=== PATIENT | female | born 1990 | race Caucasian/White ===

== ENCOUNTER → 2021-03-22 12:29 | Outpatient (CLI) | payer OTHER, SELFPAY ==
--- NOTE | 2021-03-22 12:30 | DI.RAD.S_ITS ---
PROCEDURE: HL HYSTEROSAPINGOGRAPHY INDICATIONS: primary infertility COMPARISON: None. FINDINGS: Patient had a documented negative test prior to the study. Following speculum insertion, a balloon-tip catheter was inserted into the cervical canal, and secured by inflating the balloon. Contrast was then injected into the endometrial canal. Uterus: The uterine cavity appears normal in size and morphology, without synechiae or masses. Fallopian tubes: Both fallopian tubes fill with contrast, and appear normal in caliber and morphology. There is ready dispersion of contrast into the peritoneal cavity. IMPRESSION: Normal hysterosalpingogram. Dictated by: Nya Garcia MD, PhD on 03/22/2021 at 16:25 Approved by: Nya Garcia MD, PhD on 03/22/2021 at 16:26
--- NOTE | 2021-03-22 17:52 | PM.PROC.1 ---
Procedures Date/Time Date of procedure: 03/22/21 Time of procedure: 13:00 General Procedure description: Hysterosalpingogram note: After obtaining informed consent, the placement was placed in the supine position on the x-ray table. A sterile bivalve speculum was then placed inside the vagina and the cervix visualized. The cervix was then painted with Betadine and a hysterosalpingogram cannula was then introduced through the endocervical canal into the lower uterine segment. 1 cc of air was placed in the balloon so as to hold it in place and with the radiologist in attendance contrast material was slowly injected into the uterine cavity. Prompt fill of the cavity as well as both tubes was noted and spill into the abdominal cavity followed shortly thereafter. Impression: Normal hysterosalpingogram. Complications experience none. Following completion the procedure the patient was counseled regarding precautionary symptoms, limitations of activity, and she will be followed up in the office with a quantitative progesterone level to be drawn on 04/01/2021 which will be day 21 of this menstrual cycle. Complications: none
== END ==
PROVIDERS: Family Provider Family Medicine; PCP Student in an Organized Health Care Education/Training Program; Referring Provider Obstetrics & Gynecology; Visit Provider Obstetrics & Gynecology
DX: N97.9 Female infertility, unspecified (principal)
CPT/HCPCS: 58340; 74740

== ENCOUNTER → 2021-04-18 16:17 | Outpatient (CLI) | payer OTHER, SELFPAY ==
[2021-04-18 18:01] LABS: COVID19 -Nasal RAPID Negative (Negative)
== END ==
PROVIDERS: Family Provider Family Medicine; PCP Student in an Organized Health Care Education/Training Program; Referring Provider Obstetrics & Gynecology; Visit Provider Obstetrics & Gynecology
DX: Z01.812 Encounter for preprocedural laboratory examination (principal); Z20.822 Contact with and (suspected) exposure to COVID-19
CPT/HCPCS: 87635

== ENCOUNTER 2021-04-19 13:52 | Day surgery (SDC) | payer OTHER, SELFPAY ==
[2021-04-12 13:11] VITALS: BMI 22.9
[2021-04-19] VITALS (11 sets, daily range): BP systolic 73–121; BP diastolic 35–78; PULSE 66–77; RESP 12–16; TEMP 36.5–36.7; O2SAT 95–100; BMI 21.6
--- NOTE | 2021-04-19 | PATH_ITS ---
[facility] Accession Number: [id number] . 01 Material submitted: . PART A: body - LEFT PELVIC SIDE WALL PART B: peritoneum - PERITONEAL RIGHT PELVIC SIDE WALL PART C: endocervix - ENDOCERVICAL CURETTAGE PART D: endometrium - ENDOMETRIAL CURETTAGE . 02 Diagnosis: A. Left Pelvix Sidewall: Fibroconnective tissue involved by endometriosis. . B. Peritoneal Right Pelvic Sidewall: Fibroconnective tissue with focal changes suggestive of, but not diagnostic of, involvement by endometriosis. . C. Endocervical Curettage: Small fragments of glandular epithelium; negative for glandular dysplasia or malignancy. Please see comment. Small portions of squamous mucosa with reactive features; negative for squamous dysplasia or malignancy. . D. Endometrial Curettage: Portions of proliferative endometrium; negative for glandular hyperplasia, cytologic atypia, or malignancy. Some endometrial fragments demonstrate prominent vessels, suggestive of polyp, if clinical and imaging studies are concordant. [facility] 04/22/2021 1351 Local . 02 Comment: Part C: Due to the scant nature of this biopsy, it may not be entirely agency sales representative of this patient's endocervix; additional sampling could be considered, if clinically appropriate. . 02 Electronically signed: . Shauna Champion MD, Pathologist NPI- [id number] . 01 Gross description: . Part A: LEFT PELVIC SIDE WALL: Received in formalin is 1 fragment(s) of swenson, soft tissue measuring 0.4 x 0.3 x 0.3 cm which is inked and submitted entirely in 1 cassette(s) Part B: PERITONEAL RIGHT PELVIC SIDE WALL: Received in formalin is 1 fragment(s) of swenson, soft tissue measuring 0.3 x 0.1 x 0.1 cm submitted entirely in 1 cassette(s) Part C: ENDOCERVICAL CURETTAGE: Received in formalin are minute fragments of mucoid and hemorrhagic material measuring 1.2 x 1.2 x 0.2 cm in aggregate. Submitted in toto in 1 cassette. Part D: ENDOMETRIAL CURETTAGE: Received in formalin are multiple fragment(s) of swenson, soft tissue measuring 2.5 x 1.8 x 0.7 cm in aggregate submitted entirely in 1 cassette(s) /Q 04/20/2021 53 Local . 02 Pathologist provided ICD-10: N84.0, N97.9 . 02 CPT . 843695, 521291, 484888, [id number] Performed at: 01 [facility] [address] [place] [address], [place], [place] [id number] MD Jeffry Bergeron MD Phone: [phone] Performed at: [facility] [address] [address] [place], [place] [id number] MD Priscilla Crowe MD Phone: [phone]
[2021-04-19] MEDS: ACETAMINOPHEN 325 MG TABLET 975 MG PO (14:33)
[2021-04-19] MEDS: LACTATED RINGERS 1,000 ML 42 ML IV ×2 (14:35→16:40)
--- NOTE | 2021-04-19 14:47 | PM.PREOP ---
Pre-operative Note COVID-19 COVID-19 status: Negative Result date/Date tested (Pos, Neg/Pending): 04/18/21 Interval Note History & Physical reviewed/Exam performed by Physician: Yes Changes to H&P: No
--- NOTE | 2021-04-19 15:50 | SUR.OPER ---
Lithotomy on padded OR bed, head on pillow, arms padded with gelpad and tucked with armsheet. Legs secured in padded yellow fins stirrups.
[2021-04-19] MEDS: LIDOCAINE 1% 20 ML INJ (16:08)
--- NOTE | 2021-04-19 16:47 | PM.GYNOP.1 ---
Operative Date/Time/Diagnoses Date of procedure: 04/19/21 Time of procedure: 15:00 Pre-op diagnosis: Endometrial polyp Primary infertility Post-op diagnosis: other (Same as above, pelvic endometriosis) Procedure & Clinicians Procedure: Procedures Operation Date: 04/19/21 15:00 Actual Procedure Side Surgeon p Hysteroscopy w/polypectomy, Diagnostic Laparoscopy, Dilation & Curettage of Uterus Not Applicable Tito Bravo MD Surgeon: Tito Bravo Anesthesia Type: General Operative Notes Findings: There are multiple superficial implants of endometriosis involving the anterior cul-de-sac. In addition there are 3 small areas of deep endometriosis with 2 of them overlying the ureter at the pelvic brim on each side. These were excised. There were 2 additional small deep endometrial implants with 1 overlying the distal right uterosacral ligament and the other immediately lateral on the right side. These were destroyed with judicious use of monopolar current. Throughout the posterior cul-de-sac there were superficial implants and clear blebs suggestive of diffuse peritoneal endometriosis. The uterus is retroverted and normal in size. Both fallopian tubes to be appear to be normal in their entirety. No adhesions were noted and there were no adhesions involving either ovary. Both ovaries were normal in size and there was a superficial endometrial implant involving the surface of the left ovary which was destroyed with monopolar current. The liver edge and gallbladder were visually normal as was the diaphragm. The appendix was fully visualized and it too was normal without evidence of involvement with endometriosis. AFS endometriosis classification score = 4 (Minimal). Closure Type: primary Specimen(s): endometrial curettings and other (ECC, left and right pelvic sidewall biopsies) Estimated blood loss (mL): 10 Blood products transfused: none Procedure in detail: Or with the patient under satisfactory general endotracheal anesthesia in the modified dorsal lithotomy position, the perineum vagina and abdomen were prepped and draped in the usual fashion for hysteroscopy/laparoscopy. A pre-surgical safety time-out was then taken in accordance with [facility] OR protocols. No uterine manipulator was applied to the uterus and attention was turned to the laparoscopy portion of the case. The umbilicus was infiltrated with 1% plain lidocaine and a 5 mm vertical umbilical incision was made in the inferior edge of the umbilicus. A Veress needle was then used to insufflate the abdomen with carbon dioxide in once insufflated a 5 mm trocar and sleeve were then placed through the umbilical incision. The presence of the port within the abdominal cavity was confirmed with laparoscopic visualization and a 2nd and 3rd 5 mm laparoscopic port was placed in the left and right mid quadrants in a similar manner. Using a 3 puncture technique the pelvis and abdomen were inspected and photographically documented with the findings as noted above. The deep implants overlying the left and right ureters at the pelvic brim were excised with careful avoidance of all underlying structures. Judicious use of monopolar cautery resulted in complete hemostasis of these excision sites. Monopolar current was used then to destroyed all visualized areas of endometriosis in the anterior cul-de-sac, posterior cul-de-sac, and pelvic sidewalls. The pelvis was irrigated thoroughly and reinspected. There was no bleeding and both ureters were seen to be peristalsing normally. At that point the pneumoperitoneum was vented and the laparoscopic port incisions closed with 4-0 Monocryl using inverted interrupted stitches. Appropriate dressings were applied and attention was turned to the hysteroscopy portion of the case. A speculum was placed in the vagina and the anterior lip of the cervix grasped with a single-tooth tenaculum. The endocervical canal was then slowly dilated to 7 mm and a 6 mm hysteroscope was placed into the endometrial cavity. There were no abnormalities noted other than those created by cervical dilators entering the endometrial cavity. Both tubal ostia were visualized and seen to be normal. At that point the hysteroscope was removed and fractional curettage was performed with EMC and ECC specimens submitted separately. The tenaculum was then removed from the cervix and a long Allis clamp was used to render the right tenaculum puncture site hemostatic. At that point the speculum was removed from the vagina, the was patient awakened from anesthesia, and transferred to the PACU for a period of observation in recovery. Complications: none Post-operative Condition: stable Disposition: PACU Plan for aftercare: Routine postoperative care. Will discuss Lupron Depo therapy at the time of her 2 week postop checkup.
[2021-04-19] MEDS: fentaNYL 100 MCG/2 ML INJ IV (17:03)
[2021-04-19] MEDS: hydrOXYzine 50 MG/ML INJ 25 MG IM (17:23)
[2021-04-19] MEDS: OXYCODONE IR 5 MG TABLET PO (17:37)
== END 2021-04-19 18:17 | disposition home or self-care (01) ==
PROVIDERS: Family Provider Family Medicine; PCP Student in an Organized Health Care Education/Training Program; Referring Provider Obstetrics & Gynecology; Visit Provider Obstetrics & Gynecology
PROC: 0UDB8ZZ Extraction of Endometrium, Via Natural or Artificial Opening Endoscopic (ICD-10-PCS; CPT 58558; principal; 2021-04-19 15:00)
DX: N80.3 Endometriosis of pelvic peritoneum (principal); N97.9 Female infertility, unspecified; N80.1 Endometriosis of ovary
CPT/HCPCS: 58662; 58558; J0330; J1100; J1885; J2250; J2405; J2704; J3010; J3410